=== PATIENT | female | born 1980 | race African-American/Black ===

== ENCOUNTER 2019-02-05 14:51 | Emergency (ER) | payer OTHER ==
[~2019-02-05] VITALS: Ht 167.6 cm; Wt 81.7 kg
[~2019-02-05 14:51] MED LIST: IBUPROFEN 800800 MG PO; NOHOMEMEDICATIONS; PERCOCET 5-3251 EACH PO
[2019-02-05 15:37] LABS: ABSOLUTE NEUTROPHILS 3.4 thou/uL (1.4-8.2); BASOPHILS 0.8 % (0.0-2.0); HEMATOCRIT 34.2 % (37.0-47.0); HEMOGLOBIN 11.3 gm/dL (12.0-15.0); LYMPHOCYTES 29.2 % (24.0-44.0); MCV 78.8 fL (80.0-100.0); MONOCYTES 8.4 % (1.0-8.0); PLATELET COUNT 299 thou/uL (150-400); POLYS 60.6 % (36.0-66.0); RBC 4.34 mil/uL (4.20-5.00); RDW 14.4 % (10.5-14.5); WBC 5.7 thou/uL (4.0-11.0)
[2019-02-05 15:42] LABS: CALCIUM 8.7 mg/dL (8.5-10.1); CREATININE 0.6 mg/dL (0.6-1.0); POTASSIUM 3.4 mmol/L (3.5-5.1)
[2019-02-05 15:45] LABS: URIC ACID* 2.6 mg/dL (2.6-7.2)
[2019-02-05] MEDS ORDERED: ULTRAM 50MG TAB50 MG PO (16:02)
[2019-02-05] MEDS ORDERED: INDOMETHACIN 5050 M1 PO (16:02)
[2019-02-05 16:20] VITALS: BP 125/76
== END 2019-02-05 16:10 | disposition home or self-care (01) ==
LOC: ER 14:51
PROVIDERS: Physician Assistant
DX: M79.674 Pain in right toe(s) (principal); L53.9 Erythematous condition, unspecified; R22.41 Localized swelling, mass and lump, right lower limb

== ENCOUNTER 2020-05-18 15:14 | Emergency (ER) | payer OTHER ==
[~2020-05-18] VITALS: Ht 167.6 cm; Wt 86.2 kg
[~2020-05-18 15:14] MED LIST changes: +INDOMETHACIN 5050 M1 PO; +ULTRAM 50MG TAB50 MG PO
[2020-05-18] MEDS ORDERED: MEDROLDOSEPACK PO (16:38)
[2020-05-18] MEDS ORDERED: CYCLOBENZAPRINE5 MG PO (16:38)
[2020-05-18] MEDS ORDERED: NORCO 5-325 TA1 EAC1 PO (16:38)
[2020-05-18 17:18] VITALS: BP 130/73
== END 2020-05-18 17:18 | disposition home or self-care (01) ==
LOC: ER 15:14
DX: M79.651 Pain in right thigh (principal); G57.11 Meralgia paresthetica, right lower limb; M10.9 Gout, unspecified; Z79.899 Other long term (current) drug therapy